=== PATIENT | male | born 1965 | race Caucasian/White ===

== ENCOUNTER 2018-06-13 15:56 | Emergency (ER) | payer OTHER ==
--- NOTE | 2018-06-13 16:00 | ER Report ---
History and Physical Time Seen By MD: 16:01 Depart Departure Condition: Stable Disposition: HOME OR SELF-CARE NOE LOYD MD Jun 13, 2018 16:01
[2018-06-13] MEDS ORDERED: NS(*) 0.9% 500 ML BAG 500 ML IV ONE (17:20)
[2018-06-13] MEDS ORDERED: ONDANSETRON 4 MG/2 ML VIAL IVP ONE (17:20)
[2018-06-13 17:50] LABS: PLATELET COUNT, AUTOMATED 159 K/uL (150-450)
[2018-06-13] MEDS ORDERED: KETOROLAC 30 MG/ML VIAL IVP ONE (17:50)
[2018-06-13] MEDS ORDERED: diphenhydrAMINE 25 MG CAP PO ONE (17:50)
[2018-06-13] MEDS ORDERED: AZITHROMYCIN(*) 500 MG 500 MG in NS(*) 0.9% 250 ML BAG 250 ML IVPB ONE (18:55)
[2018-06-13] MEDS ORDERED: HYDROMORPHONE HCL 1 MG/ML SYRINGE IVP ONE (18:55)
[2018-06-13] MEDS ORDERED: cefTRIAXone 1 GM VIAL IVP ONE (18:55)
--- NOTE | 2018-06-13 19:07 | ER Report ---
History and Physical Time Seen By MD: 18:15 Hx. of Stated Complaint: pt reports pain and swelling LLE. edema and red spots/mottling, decreased sensation, nausea and diarrhea x4 today, feverish HPI/ROS CHIEF COMPLAINT: leg pain and swelling HISTORY OF PRESENT ILLNESS: This is a 53 year old male. He is traveling to his home in [place] after traveling to [place] for a horse race. He has a Navicular fracture in his left foot and has a boot, but does not wear it much unless he needs to bear weight because it is very painful for him. 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 This is doing well. He and his partner recently had diarrhea and they both tested positive for Campylobacter. His diarrhea went away, but his partner was treated. His diarrhea is back now. His left leg is more swollen now, and is now red and somewhat warm. He has many small skin lesions on the leg as well, which he says are from chiggers. He normally takes Oxycodone for pain and will use Soma to help sleep. He left these medicines in [place]. He states that the pain was worsening, so they decided that they needed to stop. They plan to continue traveling to [place] this evening. He is most concerned about getting an infection in the leg given his HIV. Having some subjective fevers. Allergies: Coded Allergies: abacavir (Verified Allergy, Unknown, 06/13/18) acetaminophen (Verified Allergy, Unknown, 06/13/18) amlodipine (Verified Allergy, Unknown, 06/13/18) ciprofloxacin (Verified Allergy, Unknown, 06/13/18) clindamycin (Verified Allergy, Unknown, 06/13/18) gemfibrozil (Verified Allergy, Unknown, 06/13/18) hydrocodone (Verified Allergy, Unknown, 06/13/18) iodine (Verified Allergy, Unknown, 06/13/18) morphine (Verified Allergy, Unknown, 06/13/18) prochlorperazine (Verified Allergy, Unknown, 06/13/18) zolpidem (Verified Allergy, Unknown, 06/13/18) Uncoded Allergies: CONTRAST DYE (Allergy, Unknown, 06/13/18) Home Meds Active Scripts Potassium Chloride (KLOR-CON M20) 20 Meq Tab.er.prt, 20 MEQ PO QDAY, #30 TAB 0 Refills Prov:KANG MALIK MD 06/13/18 Amoxicillin/Pot Clav 875-125 Mg Tab (AUGMENTIN 875-125 TABLET) 1 Each Tablet, 1 TAB PO Q12H, #20 TAB 0 Refills Prov:KANG MALIK MD 06/13/18 Azithromycin (ZITHROMAX) 250 Mg Tablet, 2 TAB PO ONCE, #4 TAB 0 Refills Prov:KANG MALIK MD 06/13/18 Reported Medications Valacyclovir Hcl (VALACYCLOVIR) 500 Mg Tablet, 500 MG PO 06/13/18 Fluconazole (DIFLUCAN) 200 Mg Tablet, 200 MG PO QDAY 06/13/18 Nystatin 100,000 Unit/Gm Top Powder (NYSTATIN 100,000 UNIT/GM TOP POWDER) 15 Gm Powder, 15 GM TP, TUBE 06/13/18 Fluconazole (FLUCONAZOLE) 100 Mg Tablet, 100 MG PO QDAY 06/13/18 Oxycodone Hcl (OXYCONTIN) 10 Mg Tab.er.12h, 10 MG PO, TAB 06/13/18 Duloxetine HCl (Duloxetine HCl) 60 Mg Capsule.dr 06/13/18 Carisoprodol (CARISOPRODOL) 350 Mg Tablet, 350 MG PO DAILY, TAB 06/13/18 Losartan Potassium (LOSARTAN POTASSIUM) 50 Mg Tablet, 50 MG PO QDAY 06/13/18 Trazodone Hcl (TRAZODONE HCL) 100 Mg Tablet, 100 MG PO HS, TAB 06/13/18 Hydrochlorothiazide (HYDROCHLOROTHIAZIDE) 25 Mg Tablet, 1 TAB PO QDAY, TAB 06/13/18 Carvedilol (CARVEDILOL) 6.25 Mg Tab, 6.25 MG PO BID, TAB 06/13/18 Tenofovir Disoproxil Fumarate (VIREAD) 300 Mg Tablet, 300 MG PO 06/13/18 Dolutegravir Sodium (TIVICAY) 50 Mg Tablet 06/13/18 Pravastatin Sodium (PRAVACHOL) 20 Mg Tablet, 20 MG PO QDAY, TAB 06/13/18 Reviewed Nurses Notes: Yes Hx Substance Use Disorder: No Hx Alcohol Use: Yes (rare) Constitutional Vital Sign - Last 24 Hours 06/13/18 06/13/18 06/13/1818 16:32 16:34 16:41 16:46 Temp 99.2 Pulse 101 100 Resp 14 B/P (MAP) 147/99 (115) 147/99 143/91 (108) Pulse Ox 91 92 O2 Delivery Room Air 06/13/18 06/13/18 06/13/18 06/13/18 16:56 17:00 17:11 17:26 Pulse 100 98 94 B/P (MAP) 138/89 (105) Pulse Ox 87 91 89 06/13/18 06/13/18 06/13/18 06/13/18 17:30 17:41 17:43 17:48 Pulse 95 97 B/P (MAP) ???/??? (0175) 134/92 (106) Pulse Ox 91 90 06/13/18 06/13/18 06/13/18 06/13/18 18:00 18:03 18:18 18:30 Pulse 94 93 B/P (MAP) 155/88 (110) ???/??? (4095) Pulse Ox 89 87 06/13/18 06/13/18 06/13/18 06/13/18 18:33 18:48 19:00 19:03 Pulse 92 99 92 B/P (MAP) ???/??? (9207) Pulse Ox 87 89 92 06/13/18 06/13/18 06/13/18 06/13/18 19:18 19:22 19:30 19:33 Pulse 94 94 B/P (MAP) 129/103 (112) 140/97 (111) Pulse Ox 88 90 06/13/18 06/13/18 06/13/18 06/13/18 19:38 19:53 20:00 20:08 Pulse 94 91 92 B/P (MAP) 136/85 (102) Pulse Ox 92 90 87 06/13/18 06/13/18 20:15 20:23 Temp 98.7 Pulse ??? Physical Exam General Appearance: The patient is alert. No acute distress. Non-toxic in appearance. Eyes: Pupils are equal, round. No pallor, injection or icterus. ENT: Mucous membranes are moist. Has some thrush in the cheeks and a lesion on the buccal mucosa that is being evaluated in [place]. Respiratory: Breathing easily and unlabored. Lungs are clear to auscultation. Cardiovascular: Regular rate and rhythm. No murmurs, gallops or rubs. Normal capillary refill. Has edema in the ankle and into the lower leg on the left. Neurological: Alert and oriented x3. Normal sensation and motor function of the foot. Skin: Warm and dry. Redness lateral lower leg on left. Small bites over the lower leg. One small area of skin breakdown under the left 2nd toe as well. No breakdown between the toes. Has no signs of abscess, drainage or fluctuance. Musculoskeletal: Some tenderness in the ankle. Minimal tenderness in the lower leg. Full range of motion. DIFFERENTIAL DIAGNOSIS: After history and physical exam, differential diagnosis was considered for swelling and pain in the lower leg. Concern about cellulitis versus deep veinous thrombosis. Need to consider opportunistic infections. With the positive Campylobacter and now diarrhea, will tailor antibiotics to cover this as well as cellulitis. Swelling will also be due in part to the fracture and riding in the car with leg dependent as well. Medical Decision Making Data Points Result Diagram: 06/13/18 1743 06/13/18 1743 Laboratory Hematology Test 06/13/18 17:43 Red Blood Count 4.24 M/uL (4.00-5.60) Mean Corpuscular Volume 87.5 fL (80.0-96.0) Mean Corpuscular Hemoglobin 30.0 pg (26.0-33.0) Mean Corpuscular Hemoglobin Concent 34.2 g/dL (32.0-36.0) Red Cell Distribution Width 17.7 % (11.5-14.5) Mean Platelet Volume 7.5 fL (7.2-11.1) Neutrophils (%) (Auto) 67.0 % (39.4-72.5) Lymphocytes (%) (Auto) 24.4 % (17.6-49.6) Monocytes (%) (Auto) 7.1 % (4.1-12.4) Eosinophils (%) (Auto) 0.2 % (0.4-6.7) Basophils (%) (Auto) 1.3 % (0.3-1.4) Nucleated RBC Relative Count (auto) 0.0 /100WBC Neutrophils # (Auto) 7.9 K/uL (2.0-7.4) Lymphocytes # (Auto) 2.9 K/uL (1.3-3.6) Monocytes # (Auto) 0.8 K/uL (0.3-1.0) Eosinophils # (Auto) 0.0 K/uL (0.0-0.5) Basophils # (Auto) 0.2 K/uL (0.0-0.1) Nucleated RBC Absolute Count (auto) 0.00 K/uL Sodium Level 136 mmol/L (137-145) Potassium Level 3.1 mmol/L (3.5-5.0) Chloride Level 101 mmol/L (98-107) Carbon Dioxide Level 25 mmol/L (22-30) Blood Urea Nitrogen 33 mg/dl (9-21) Creatinine 1.00 mg/dl (0.66-1.25) Glomerular Filtration Rate Calc > 60.0 Random Glucose 116 mg/dl (75-110) Calcium Level 8.5 mg/dl (8.4-10.2) Total Bilirubin 0.4 mg/dl (0.2-1.3) Aspartate Amino Transf (AST/SGOT) 27 U/L (0-35) Alanine Aminotransferase (ALT/SGPT) 52 U/L (0-56) Alkaline Phosphatase 64 U/L (0-126) Total Protein 6.1 g/dl (6.3-8.2) Albumin 3.6 g/dl (3.5-5.0) Chemistry Test 06/13/18 17:43 White Blood Count 11.9 k/uL (4.5-11.0) Red Blood Count 4.24 M/uL (4.00-5.60) Hemoglobin 12.7 g/dL (14.0-18.0) Hematocrit 37.1 % (42.0-52.0) Mean Corpuscular Volume 87.5 fL (80.0-96.0) Mean Corpuscular Hemoglobin 30.0 pg (26.0-33.0) Mean Corpuscular Hemoglobin Concent 34.2 g/dL (32.0-36.0) Red Cell Distribution Width 17.7 % (11.5-14.5) Platelet Count 159 K/uL (150-450) Mean Platelet Volume 7.5 fL (7.2-11.1) Neutrophils (%) (Auto) 67.0 % (39.4-72.5) Lymphocytes (%) (Auto) 24.4 % (17.6-49.6) Monocytes (%) (Auto) 7.1 % (4.1-12.4) Eosinophils (%) (Auto) 0.2 % (0.4-6.7) Basophils (%) (Auto) 1.3 % (0.3-1.4) Nucleated RBC Relative Count (auto) 0.0 /100WBC Neutrophils # (Auto) 7.9 K/uL (2.0-7.4) Lymphocytes # (Auto) 2.9 K/uL (1.3-3.6) Monocytes # (Auto) 0.8 K/uL (0.3-1.0) Eosinophils # (Auto) 0.0 K/uL (0.0-0.5) Basophils # (Auto) 0.2 K/uL (0.0-0.1) Nucleated RBC Absolute Count (auto) 0.00 K/uL Glomerular Filtration Rate Calc > 60.0 Calcium Level 8.5 mg/dl (8.4-10.2) Total Bilirubin 0.4 mg/dl (0.2-1.3) Aspartate Amino Transf (AST/SGOT) 27 U/L (0-35) Alanine Aminotransferase (ALT/SGPT) 52 U/L (0-56) Alkaline Phosphatase 64 U/L (0-126) Total Protein 6.1 g/dl (6.3-8.2) Albumin 3.6 g/dl (3.5-5.0) ED Course/Re-evaluation Clinical Indication for ER IV: Hydration, IV Access ED Course Labs do show a slight increased in his white count. His potassium and his sodium are a little low as well. Initially was given some Zofran, Toradol, and Benadryl. Minimal improvement in pain. Given Dilaudid 1mg IV. Started Rocephin 1g IV and Azithromycin 500mg IV. Oral replacement of the potassium. Provided oral pain medicines for pain. He will return home and will follow-up with primary care at home this week. Continue with oral Azithromycin 500mg once a day for 2 more days and also Augmenting 875/125 twice a day for 10 days. He has oral Nystatin to use for thrush at home. I recommended short term follow-up to make sure the leg is improving with the current treatment. Decision to Disposition Date: Jun 13, 2018 Decision to Disposition Time: 19:37 Depart Departure Latest Vital Signs Vital Signs Date Time Temp Pulse Resp B/P (MAP) Pulse Ox O2 Delivery O2 Flow Rate FiO2 06/13/18 20:23 ??? 06/13/18 20:15 98.7 06/13/18 20:08 87 06/13/18 20:00 136/85 (102) 06/13/18 16:34 14 Room Air Impression: Primary Impression: Cellulitis Condition: Improved Disposition: HOME OR SELF-CARE New Scripts Potassium Chloride (KLOR-CON M20) 20 Meq Tab.er.prt 20 MEQ PO QDAY, #30 TAB 0 Refills Prov: KANG MALIK MD 06/13/18 Amoxicillin/Pot Clav 875-125 Mg Tab (AUGMENTIN 875-125 TABLET) 1 Each Tablet 1 TAB PO Q12H, #20 TAB 0 Refills Prov: KANG MALIK MD 06/13/18 Azithromycin (ZITHROMAX) 250 Mg Tablet 2 TAB PO ONCE, #4 TAB 0 Refills Prov: KANG MALIK MD 06/13/18 Patient Instructions: Cellulitis (ED) Additional Instructions: Please see your doctor in the next day or two for re-evaluation. Take the following two antibiotics: Azithromycin 250mg tablets, take 2 tablets once a day for 2 days Augmenting 875/125, take 1 tablets twice a day for 10 days. Your potassium was a little low tonight as well. Start a potassium supplement called Klor-Con 20mEq once a day. Use an DYLAN wrap for compression while driving. Make sure to use your boot when up and around. Oxycodone 5mg, take one every 4 hours as needed for pain. Problem Qualifiers Primary Impression: Cellulitis Site of cellulitis: extremity Site of cellulitis of extremity: lower extremity Laterality: left Qualified Codes: L03.116 - Cellulitis of left lower limb KANG MALIK MD Jun 13, 2018 19:07
--- NOTE | 2018-06-13 19:09 | RADIOLOGY IMAGING REPORT ---
FACILITY: [facility] [place]IENT NAME: Raffi Sharp : 1965 MR: [id number] V: [id number] EXAM DATE: ORDERING PHYSICIAN: NOE LOYD TECHNOLOGIST: Location: [facility] - [place] Patient: Rfafi Sharp : 1965 Visit/Account:[id number] Date of Sevice: 06/13/2018 EXAMINATION: VENOUS DOPP LOW LEFT EXTREMITY COMPARISON: None Available HISTORY: Left lower extremity swelling. FINDINGS: Standard left lower extremity Doppler ultrasound with color flow and spectral analysis is p erformed. The common femoral, femoral, and popliteal veins are widely patent and compress appropriately. The v isualized calf veins and the proximal greater saphenous vein are patent. No popliteal fluid collection. The contralateral common femoral vein is patent. IMPRESSION: No left lower extremity deep venous thrombosis. Report Dictated By: Avtar Alejandro MD at 06/13/2018 7:05 PM Report E-Signed By: Avtar Alejandro MD at 06/13/2018 7:06 PM WSN:[id number]
[2018-06-13] MEDS ORDERED: POTASSIUM CHL 20 MEQ TABCR PO ONE (19:10)
[2018-06-13] MEDS ORDERED: AZIT-1 PO (19:39)
[2018-06-13] MEDS ORDERED: POTA20TA85 PO (19:39)
[2018-06-13] MEDS ORDERED: AMOX-559 PO (19:39)
[2018-06-13] MEDS ORDERED: oxyCODONE HCL 5 MG CAP PO ONE (19:40)
[2018-06-13 20:00] VITALS: BP 136/85
[2018-06-13] MEDS ORDERED: LOSA50TA74 PO (20:22)
[2018-06-13] MEDS ORDERED: CAR6.25 PO (20:22)
[2018-06-13] MEDS ORDERED: FLUC100T39 PO (20:22)
[2018-06-13] MEDS ORDERED: NYST15PO4 TP (20:22)
[2018-06-13] MEDS ORDERED: FLUC200T52 PO (20:22)
[2018-06-13] MEDS ORDERED: DULO60CA7 (20:22)
[2018-06-13] MEDS ORDERED: VALA500T63 PO (20:22)
[2018-06-13] MEDS ORDERED: DOLU50TA (20:22)
[2018-06-13] MEDS ORDERED: CARI-327 PO (20:22)
[2018-06-13] MEDS ORDERED: HYDR-2966 PO (20:22)
[2018-06-13] MEDS ORDERED: OXYC-823 PO (20:22)
[2018-06-13] MEDS ORDERED: TEN300PT PO (20:22)
[2018-06-13] MEDS ORDERED: TRAZ100T31 PO (20:22)
[2018-06-13] MEDS ORDERED: PRAV20TA65 PO (20:22)
== END 2018-06-13 20:25 | disposition home or self-care (01) ==
LOC: ER 16:29
DX: L03.116 Cellulitis of left lower limb (principal)
CPT/HCPCS: 85025; 93971; 96361; 96365; 96375; 99284; J0456; J0696; J1170; J1885; J2405; J7040; J7050; Q0163; 82040; 82247; 82310; 82374; 82435; 82565; 82947; 84075; 84132; 84155; 84295; 84450; 84460; 84520